=== PATIENT | male | born 1935 | race Caucasian/White ===

== ENCOUNTER 2016-11-20 16:01 | Inpatient (IN) | payer MEDICARE, OTHER ==
[~2016-11-20] VITALS: Ht 162.6 cm; Wt 64.5 kg
[2016-11-20] MEDS ORDERED: SODIUM CHLORIDE FLUSH 10ML SYR IVF ONE (16:30)
[2016-11-20 16:34] LABS: ASPARTATE AMINO TRANSFERASE 23 U/L (15-37); BLOOD UREA NITROGEN 19 mg/dL (7-18)
[2016-11-20] MEDS ORDERED: OMEP-110 PO (17:04)
[2016-11-20] MEDS ORDERED: MULT-658 PO (17:04)
[2016-11-20] MEDS ORDERED: MEGA RED KRILL PO (17:04)
[2016-11-20] MEDS ORDERED: LISI1TAB5 PO (17:04)
[2016-11-20] MEDS ORDERED: CHOL200024 PO (17:04)
[2016-11-20] MEDS ORDERED: ATOR10TA PO (17:04)
[2016-11-20] MEDS ORDERED: ASPI-496 PO (17:04)
[2016-11-20] MEDS ORDERED: SODIUM CHLORIDE 0.9% 1,000 ML IV ONE (18:35)
[2016-11-20] MEDS ORDERED: SODIUM CHLORIDE FLUSH 10ML SYR IVF PRN (19:00)
[2016-11-20] MEDS ORDERED: OXYcodone IR 5MG TABLET PO PRN (19:30)
[2016-11-20] MEDS ORDERED: ONDANSETRON 2MG/ML, 2ML IVPush PRN (19:30)
[2016-11-20] MEDS ORDERED: ACETAMINOPHEN 325 MG TABLET PO PRN (19:30)
[2016-11-20] MEDS ORDERED: morphine SULFATE 10 MG/ML, 1ML IVPush PRN (19:30)
[2016-11-20] MEDS ORDERED: hydrALAzine 20 MG/ML, 1ML IVPush PRN (19:30)
[2016-11-20] MEDS ORDERED: DOCUSATE 100 MG CAPSULE PO PRN (19:30)
[2016-11-20] MEDS ORDERED: BISACODYL 10 MG SUPP PR PRN (19:30)
[2016-11-20] MEDS ORDERED: POLYETHYLENE GLYCOL 17 GM PACKET PO PRN (19:30)
[2016-11-20] MEDS ORDERED: ENALAPRILAT 1.25 MG/ML, 2ML IVPush PRN (19:30)
[2016-11-20] MEDS ORDERED: TEMPLATE NON-FORMULARY MED. (Cholecalciferol (Vitamin D3)** (Vitamin D3**) 2,000 UNIT) PO SCH (20:00)
[2016-11-20 20:08] VITALS: BP 185/91
[2016-11-20] MEDS ORDERED: ASPIRIN 325 MG TABLET EC PO SCH (21:00)
[2016-11-20] MEDS ORDERED: ATORVASTATIN 10 MG TABLET PO SCH (21:00)
[2016-11-20] MEDS: HEPARIN 5,000 UNITS/ML, 1ML SQ SCH (21:09)
[2016-11-20] MEDS: SODIUM CHLORIDE 0.9% 1,000 ML IV SCH (21:09)
[2016-11-20 22:06] VITALS: BP 149/73
[2016-11-20] MEDS ORDERED: OMNIPAQUE 350 MG/ML, 100ML BOTTLE ONE (22:28)
[2016-11-20] MEDS ORDERED: ARTIFICIAL TEARS OPHTH SOLN 15ML EACHEYE PRN (22:30)
[2016-11-21 01:28] VITALS: BP 149/78
[2016-11-21] MEDS: HEPARIN 5,000 UNITS/ML, 1ML SQ SCH ×2 (05:05→12:29)
[2016-11-21] MEDS: SODIUM CHLORIDE 0.9% 1,000 ML IV SCH (05:06)
[2016-11-21 05:18] LABS: BLOOD UREA NITROGEN 21 mg/dL (7-18)
[2016-11-21 05:21] LABS: ASPARTATE AMINO TRANSFERASE 14 U/L (15-37)
[2016-11-21] MEDS ORDERED: ASPIRIN 325 MG TABLET EC PO SCH (06:00)
[2016-11-21] MEDS ORDERED: GADOBUTROL 7.5 MMOL/7.5 ML PFS ONE (06:59)
[2016-11-21 07:48] VITALS: BP 159/81
[2016-11-21] MEDS ORDERED: OMEPRAZOLE 20 MG CAPSULE.DR PO SCH (09:00)
[2016-11-21] MEDS ORDERED: HYDROCHLOROTHIAZIDE 12.5 MG CAPSULE PO SCH (09:00)
[2016-11-21] MEDS ORDERED: LISINOPRIL 20 MG TABLET PO SCH (09:00)
[2016-11-21] MEDS ORDERED: MULTIVITAMIN 1 TABLET PO SCH (09:00)
[2016-11-21 13:57] VITALS: BP 169/81
[2016-11-21] MEDS ORDERED: ATOR20TA9 PO ×2 (14:24→15:59)
[2016-11-21] MEDS ORDERED: ASPI-496 PO ×2 (14:25→14:27)
[2016-11-21] MEDS ORDERED: ATOR40TA78 PO (15:56)
[2016-11-21] MEDS ORDERED: ATORVASTATIN 20 MG TABLET PO SCH (21:00)
[2016-11-21] MEDS ORDERED: ASPIRIN 81 MG TABLET EC PO SCH (21:00)
== END 2016-11-21 15:30 | disposition home or self-care (01) | DRG 69 ==
LOC: ED 19:19 → EDIP 19:32 → 4EST 19:54 → DCLOUNGE 11-21 15:10
PROVIDERS: ADMIT Internal Medicine; ATTEND Internal Medicine
DX: G45.9 Transient cerebral ischemic attack, unspecified (principal); R53.1 Weakness; I10 Essential (primary) hypertension; E78.5 Hyperlipidemia, unspecified; K21.9 Gastro-esophageal reflux disease without esophagitis; Z90.49 Acquired absence of other specified parts of digestive tract; Z85.46 Personal history of malignant neoplasm of prostate; Z79.82 Long term (current) use of aspirin
CPT/HCPCS: 36415; 70450; 70496; 70498; 70553; 72156; 80053; 80061; 81003; 82306; 82607; 83036; 83735; 84439; 84443; 85025; 85610; 85730; 93005; 93306; 93880; 99285; A9585; J1644; Q9967; J0360; J7030

== ENCOUNTER → 2017-08-04 | Outpatient (CLI) | payer MEDICARE, OTHER ==
[~2017-08-04] MED LIST: ASPI-496 PO; ATOR10TA PO; ATOR20TA9 PO; ATOR40TA78 PO; CHOL200024 PO; LISI1TAB5 PO; MEGA RED KRILL PO; MULT-658 PO; OMEP-110 PO
== END | disposition home or self-care (01) ==
LOC: CFH 15:48
PROVIDERS: ATTEND Psychiatry & Neurology Neurology
DX: G31.89 Other specified degenerative diseases of nervous system (principal); Z86.73 Personal history of transient ischemic attack (TIA), and cerebral infarction without residual deficits
CPT/HCPCS: 70551